=== PATIENT | female | born 1995 | race Caucasian/White ===

== ENCOUNTER 2016-09-08 08:02 | Emergency (ER) | payer OTHER ==
[2016-09-08] MEDS ORDERED: FENTANYL 250 MCG/5 ML VIAL ONE (08:19)
[2016-09-08] MEDS ORDERED: HYDROcodone/APAP 5/325 MG 1 TAB TABLET PO ONE (09:12)
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
--- NOTE | 2016-09-09 17:45 | RADIOLOGY REPORT ---
Views of the right wrist and hand demonstrate residual growth plates. No displaced fracture or dislocation is identified. The visualized joints appear unremarkable. IMPRESSION: No displaced injury is identified. If clinically indicated, further evaluation and/or follow-up may be of benefit. NOE
== END 2016-09-08 09:52 | disposition home or self-care (01) ==
LOC: ER 08:02
DX: S52.501A Unspecified fracture of the lower end of right radius, initial encounter for closed fracture (principal); S00.212A Abrasion of left eyelid and periocular area, initial encounter; V43.62XA Car passenger injured in collision with other type car in traffic accident, initial encounter; Y92.413 State road as the place of occurrence of the external cause; Z74.3 Need for continuous supervision
CPT/HCPCS: 99284; A0425; A0427